=== PATIENT | female | born 1940 | race Caucasian/White ===

== ENCOUNTER 2019-03-22 15:41 | Inpatient (IN) | payer MEDICARE ==
[2019-03-22] MEDS ORDERED: diphenhydrAMINE 50 MG/ML 1 ML VIAL IVP STA (16:56)
[2019-03-22] MEDS ORDERED: METOCLOPRAMIDE 5 MG/ML 2 ML VIAL IVP STA (16:56)
[2019-03-22] MEDS ORDERED: MAGNESIUM SULFATE-D5W PMX 1 GM in DEXTROSE/WATER 1 100ML.BAG IVPB ONE (16:56)
[2019-03-22 17:14] LABS: ALT 23 U/L (9-52); AST 21 U/L (14-36); Albumin 4.2 g/dL (3.5-5.0); Alkaline Phosphatase 110 U/L (38-126); Ammonia <9 umol/L (<30); Anion Gap 10 mmol/L; Blood Urea Nitrogen 14 mg/dL (7-17); Calcium 9.4 mg/dL (8.4-10.2); Carbon Dioxide 25 mmol/L (22-30); Chloride 106 mmol/L (98-107); Glucose 105 mg/dL (74-99); Lactic Acid, Venous 1.4 mmol/L (0.7-2.0); Potassium 4.1 mmol/L (3.5-5.1); Sodium 141 mmol/L (137-145); Total Bilirubin 0.5 mg/dL (0.2-1.3); Total Protein 7.5 g/dL (6.3-8.2)
[2019-03-22 17:16] LABS: Appearance,Urine Clear (Clear); Bacteria,Urine Moderate /hpf; Bilirubin,Urine Negative (Negative); Blood,Urine Negative (Negative); Color,Urine Light Yellow; Glucose,Urine (UA) Negative (Negative); Hyaline Casts,Urine 1 /lpf (0-2); Ketones,Urine Negative (Negative); Leukocyte Esterase,Urine Negative (Negative); Mucus,Urine Rare /hpf; Nitrite,Urine Positive (Negative); PH, Urine 7.5 (5.0-8.0); Protein,Urine 1+ (Negative); RBC,Urine 9 /hpf (0-5); Specific Gravity,Urine 1.011 (1.001-1.035); Squamous Epithelial Cell,Urine <1 /hpf (0-4); Urobilinogen,Urine <2.0 mg/dL (<2.0); WBC,Urine 11 /hpf (0-5)
[2019-03-22 17:20] LABS: Anisocytosis Slight; Basophils # (A) 0.1 k/uL (0-0.2); Basophils % (A) 1 %; Eosinophils % (A) 0 %; HCT 37.2 % (34.0-46.0); Hypochromasia Marked; Lymphocytes # (A) 1.4 k/uL (1.0-4.8); Lymphocytes % (A) 14 %; MCH 19.6 pg (25.0-35.0); MCHC 29.4 g/dL (31.0-37.0); MCV 66.5 fL (80.0-100.0); Mean Platelet Volume 7.7; Microcytosis Marked; Monocytes # (A) 0.5 k/uL (0-1.0); Monocytes % (A) 5 %; Neutrophils # (A) 7.5 k/uL (1.3-7.7); Neutrophils % (A) 78 %; Platelet Count 402 k/uL (150-450); RDW 18.9 % (11.5-15.5); WBC 9.5 k/uL (3.8-10.6)
[2019-03-22 17:22] LABS: INR 0.9 (<1.2); Partial Thromboplastin Time 22.7 sec (22.0-30.0); Prothrombin Time 9.8 sec (9.0-12.0)
--- NOTE | 2019-03-22 17:31 | CT ---
EXAMINATION TYPE: CT brain wo con DATE OF EXAM: 03/22/2019 COMPARISON: None HISTORY: 79-year-old female with confusion, altered mental status. TECHNIQUE: Examination was done in axial plane without intravenous contrast. Coronal and sagittal r econstructions performed. CT DLP: 1099.4 mGycm Automated exposure control for dose reduction was used. FINDINGS: There is no evidence of acute intracranial hemorrhage, acute ischemic changes, mass, mass-effect, or extra-axial fluid collection. There is no effacement of cerebral sulci or basal subarachnoid cister ns. There is no hydrocephalus. There is no midline shift. Mcdonald-white matter distinction is preserv ed. There is mild generalized atrophy. There is moderate burden of periventricular and deep white matter hypodensities. Metastatic calcifications in the carotid siphons. Paranasal sinuses and mastoid air cells well pneumatized. Orbits and globes are intact. IMPRESSION: Mild generalized atrophy and moderate burden of chronic small vessel ischemic disease. No acute intra cranial abnormality seen.
--- NOTE | 2019-03-22 17:33 | XR ---
EXAMINATION TYPE: XR chest 2V DATE OF EXAM: 03/22/2019 COMPARISON: None HISTORY: 79-year-old female confusion, altered mental status TECHNIQUE: AP and lateral views FINDINGS: Heart upper limits of normal in size. Mild diffuse interstitial prominence. Mild hyperinflation. Zoe ent's left arm projects in front of the lateral left costophrenic angle. No consolidation or pleural effusion seen. IMPRESSION: 1. Borderline heart size. 2. Chronic-appearing changes, possible underlying COPD. 3. No acute process seen.
[2019-03-22] MEDS ORDERED: LABETALOL SYRINGE 5 MG/ML IVP STA (18:52)
[2019-03-22] MEDS ORDERED: NALOXONE 0.4 MG/ML 1 ML VIAL IV PRN (20:42)
--- NOTE | 2019-03-22 20:42 | ED ---
Altered Mental Status HPI - General Chief Complaint: Altered Mental Status Stated Complaint: Weakness Time Seen by Provider: 03/22/19 16:08 Source: patient, family, EMS Mode of arrival: EMS Limitations: altered mental status, physical limitation - History of Present Illness Initial Comments: The patient is an 79-year-old female who is brought to the emergency department by her son with reported confusion and weakness. The son reports that the patient went to bed yesterday symptom-free. She then awoke this morning and had generalized weakness. He also admit that she was slightly confused. The patient is reporting a generalized headache, graded as 7 out of 10. The patient does not normally get headaches. There is no associated fevers or chills. No neck pain or stiffness. The patient does admit to photophobia. no recent head trauma. Denies any unilateral numbness or weakness. No vision changes. She did not take anything for her headache. She has had a good appetite. No nausea or vomiting. Denies any chest pain or shortness of breath. Denies abdominal pain. No changes in her urination to include dysuria, hematuria or difficult voiding. Denies any changes in her bowel movements to include diarrhea, constipation, melanotic stools or hematochezia. The patient's continues to be a and O 3. She ambulates with a walker and her son's assistance. She does not have a primary care physician and has not seen a doctor in 3 years. There are no other alleviating, precipitating or modifying factors - Related Data Home Medications Medication Instructions Recorded Confirmed Ibuprofen [Advil] 200 mg PO Q8HR PRN 03/22/19 03/22/19 Ranitidine HCl [Zantac] 75 mg PO DAILY 03/22/19 03/22/19 Allergies Allergy/AdvReac Type Severity Reaction Status Date / Time No Known Allergies Allergy Verified 03/22/19 16:30 Review of Systems ROS Statement: Those systems with pertinent positive or pertinent negative responses have been documented in the HPI. ROS Other: All systems not noted in ROS Statement are negative. Past Medical History Additional Past Medical History / Comment(s): polio as child History of Any Multi-Drug Resistant Organisms: None Reported Past Surgical History: Hysterectomy, Joint Replacement Past Psychological History: No Psychological Hx Reported Smoking Status: Former smoker Past Alcohol Use History: None Reported Past Drug Use History: None Reported General Exam Limitations: no limitations General appearance: alert, in no apparent distress, other (Appears weak) Head exam: Present: atraumatic, normocephalic, normal inspection Eye exam: Present: EOMI, scleral icterus, other (The patient does have white discoloration to her left globe consistent with her chronic left eye blindness. The right pupil is equally round and reactive to light. 4 mm to 2 mm. Fun duscopic exam demonstrates no papilledema). Absent: conjunctival injection, periorbital swelling ENT exam: Present: normal exam, mucous membranes dry Neck exam: Present: normal inspection. Absent: tenderness, meningismus, lymphadenopathy Respiratory exam: Present: normal lung sounds bilaterally. Absent: respiratory distress, wheezes, rales, rhonchi, stridor Cardiovascular Exam: Present: regular rate, normal rhythm, normal heart sounds. Absent: systolic murmur, diastolic murmur, rubs, gallop, clicks GI/Abdominal exam: Present: soft, normal bowel sounds. Absent: distended, tenderness, guarding, rebound, rigid Extremities exam: Present: normal inspection, full ROM, normal capillary refill. Absent: tenderness, pedal edema, joint swelling, calf tenderness Back exam: Present: normal inspection Neurological exam: Present: alert, oriented X3, CN II-XII intact, reflexes normal, other (The patient appears weak. Finger to nose is symmetric bilaterally. No pronator drift. Negative Kernig's, negative Brudzinski's. No nuchal rigidity). Absent: motor sensory deficit Psychiatric exam: Present: normal affect, normal mood Skin exam: Present: warm, dry, intact, normal color. Absent: rash Course Vital Signs 03/22/19 03/22/19 03/22/19 15:43 15:45 16:00 Temperature 98.3 F Pulse Rate 87 84 85 Respiratory 16 Rate Blood Pressure 192/96 192/96 O2 Sat by Pulse 95 98 96 Oximetry 03/22/19 03/22/19 03/22/19 16:30 17:00 17:30 Temperature Pulse Rate 86 83 82 Respiratory Rate Blood Pressure 192/96 189/71 181/103 O2 Sat by Pulse 94 L 95 97 Oximetry 03/22/19 03/22/19 03/22/19 18:00 18:30 19:00 Temperature Pulse Rate 92 92 93 Respiratory Rate Blood Pressure 232/107 244/109 195/138 O2 Sat by Pulse 97 94 L 94 L Oximetry 03/22/19 03/22/19 03/22/19 19:30 20:00 20:30 Temperature Pulse Rate 73 70 75 Respiratory Rate Blood Pressure 191/96 212/72 180/70 O2 Sat by Pulse 92 L 94 L 96 Oximetry 03/22/19 21:00 Temperature Pulse Rate 75 Respiratory Rate Blood Pressure 185/85 O2 Sat by Pulse 92 L Oximetry Medical Decision Making - Medical Decision Making The patient was seen by myself. She was placed into room 7. She was hooked up to continuous pulse ox and cardiac monitoring. A 12-lead EKG was performed which demonstrated a normal sinus rhythm with a ventricular rate of 83. [place] 134. QRS 84. QTC of 474. There was some ST depression noted in leads 2-3. There is a biphasic T-wave in V3. No acute ST segment elevations. We did obtain IV access. The patient was given Reglan 10 mg, Benadryl 25 mg, and magnesium 1 g. She was sent for CT of her brain and a chest x-ray. Laboratory studies were conducted and the patient provided a urine sample. Upon reevaluation the patient admits improvement in her headache. She states it is a 4 out of 10. The patient does present with acute cephalgia. Her blood pressure is markedly elevated with a systolic of 240. She does have some improvement in her blood pressure after the migraine cocktail however I did provide her with labetalol 10 mg. Blood cultures were obtained and the patient was started on Rocephin. I did recommend admission to the hospital due to her hypertensive urgency, and acute encephalopathy likely secondary to UTI. The patient did agree to this. Patient will be admitted to Dr. Joe. I called and discussed the case with him and he did accept the admission. The patient remained in stable condition was transported to floor. - Differential Diagnosis acute encephalopathy, acute cephalgia, acute UTI, htn urgency - Lab Data Result diagrams: 03/22/19 16:45 03/22/19 16:45 Lab Results 03/22/19 03/22/19 03/22/19 Range/Units 16:45 16:45 16:45 WBC 9.5 (3.8-10.6) k/uL RBC 5.60 H (3.80-5.40) m/uL Hgb 11.0 L (11.4-16.0) gm/dL Hct 37.2 (34.0-46.0) % MCV 66.5 L (80.0-100.0) fL MCH 19.6 L (25.0-35.0) pg MCHC 29.4 L (31.0-37.0) g/dL RDW 18.9 H (11.5-15.5) % Plt Count 402 (150-450) k/uL Neutrophils % 78 % Lymphocytes % 14 % Monocytes % 5 % Eosinophils % 0 % Basophils % 1 % Neutrophils # 7.5 (1.3-7.7) k/uL Lymphocytes # 1.4 (1.0-4.8) k/uL Monocytes # 0.5 (0-1.0) k/uL Eosinophils # 0.0 (0-0.7) k/uL Basophils # 0.1 (0-0.2) k/uL Hypochromasia Marked Anisocytosis Slight Microcytosis Marked PT 9.8 (9.0-12.0) sec INR 0.9 (<1.2) APTT 22.7 (22.0-30.0) sec Sodium 141 (137-145) mmol/L Potassium 4.1 (3.5-5.1) mmol/L Chloride 106 (98-107) mmol/L Carbon Dioxide 25 (22-30) mmol/L Anion Gap 10 mmol/L BUN 14 (7-17) mg/dL Creatinine 0.63 (0.52-1.04) mg/dL Est GFR (CKD-EPI)AfAm >90 (>60 ml/min/1.73 sqM) Est GFR (CKD-EPI)NonAf 84 (>60 ml/min/1.73 sqM) Glucose 105 H (74-99) mg/dL Plasma Lactic Acid Doug (0.7-2.0) mmol/L Calcium 9.4 (8.4-10.2) mg/dL Total Bilirubin 0.5 (0.2-1.3) mg/dL AST 21 (14-36) U/L ALT 23 (9-52) U/L Alkaline Phosphatase 110 (38-126) U/L Ammonia (<30) umol/L Troponin I (0.000-0.034) ng/mL Total Protein 7.5 (6.3-8.2) g/dL Albumin 4.2 (3.5-5.0) g/dL Urine Color Urine Appearance (Clear) Urine pH (5.0-8.0) Ur Specific [place] (1.001-1.035) Urine Protein (Negative) Urine Glucose (UA) (Negative) Urine Ketones (Negative) Urine Blood (Negative) Urine Nitrite (Negative) Urine Bilirubin (Negative) Urine Urobilinogen (<2.0) mg/dL Ur Leukocyte Esterase (Negative) Urine RBC (0-5) /hpf Urine WBC (0-5) /hpf Ur Squamous Epith Cells (0-4) /hpf Urine Bacteria (None) /hpf Hyaline Casts (0-2) /lpf Urine Mucus (None) /hpf 03/22/19 03/22/19 03/22/19 Range/Units 16:45 16:45 16:45 WBC (3.8-10.6) k/uL RBC (3.80-5.40) m/uL Hgb (11.4-16.0) gm/dL Hct (34.0-46.0) % MCV (80.0-100.0) fL MCH (25.0-35.0) pg MCHC (31.0-37.0) g/dL RDW (11.5-15.5) % Plt Count (150-450) k/uL Neutrophils % % Lymphocytes % % Monocytes % % Eosinophils % % Basophils % % Neutrophils # (1.3-7.7) k/uL Lymphocytes # (1.0-4.8) k/uL Monocytes # (0-1.0) k/uL Eosinophils # (0-0.7) k/uL Basophils # (0-0.2) k/uL Hypochromasia Anisocytosis Microcytosis PT (9.0-12.0) sec INR (<1.2) APTT (22.0-30.0) sec Sodium (137-145) mmol/L Potassium (3.5-5.1) mmol/L Chloride (98-107) mmol/L Carbon Dioxide (22-30) mmol/L Anion Gap mmol/L BUN (7-17) mg/dL Creatinine (0.52-1.04) mg/dL Est GFR (CKD-EPI)AfAm (>60 ml/min/1.73 sqM) Est GFR (CKD-EPI)NonAf (>60 ml/min/1.73 sqM) Glucose (74-99) mg/dL Plasma Lactic Acid Doug 1.4 (0.7-2.0) mmol/L Calcium (8.4-10.2) mg/dL Total Bilirubin (0.2-1.3) mg/dL AST (14-36) U/L ALT (9-52) U/L Alkaline Phosphatase (38-126) U/L Ammonia <9 (<30) umol/L Troponin I <0.012 (0.000-0.034) ng/mL Total Protein (6.3-8.2) g/dL Albumin (3.5-5.0) g/dL Urine Color Light Yellow Urine Appearance Clear (Clear) Urine pH 7.5 (5.0-8.0) Ur Specific [place] 1.011 (1.001-1.035) Urine Protein 1+ H (Negative) Urine Glucose (UA) Negative (Negative) Urine Ketones Negative (Negative) Urine Blood Negative (Negative) Urine Nitrite Positive H (Negative) Urine Bilirubin Negative (Negative) Urine Urobilinogen <2.0 (<2.0) mg/dL Ur Leukocyte Esterase Negative (Negative) Urine RBC 9 H (0-5) /hpf Urine WBC 11 H (0-5) /hpf Ur Squamous Epith Cells <1 (0-4) /hpf Urine Bacteria Moderate H (None) /hpf Hyaline Casts 1 (0-2) /lpf Urine Mucus Rare H (None) /hpf - EKG Data -: EKG Interpreted by Ma EKG shows normal: sinus rhythm - Radiology Data Radiology results: report reviewed Disposition Clinical Impression: Encephalopathy acute, Urinary tract infection, Cephalgia, Hypertension Disposition: ADMITTED IP TO THIS [facility] Condition: Stable Is patient prescribed a controlled substance at d/c from ED?: No Time of Disposition: 20:41 Decision to Admit Reason: Admit from EC Decision Date: 03/22/19 Decision Time: 20:42
[2019-03-22] MEDS ORDERED: LABETALOL SYRINGE 5 MG/ML IVP PRN (21:21)
[2019-03-22] MEDS ORDERED: ALPRAZolam 0.25 MG TAB PO PRN (23:21)
[2019-03-22] MEDS ORDERED: LORazepam 1 MG TAB PO PRN (23:21)
[2019-03-23] MEDS ORDERED: hydrALAZINE HCL 20 MG/ML 1 ML VIAL IVP PRN (00:32)
[2019-03-23] MEDS: amLODIPine 10 MG TAB PO SCH ×2 (01:04→09:06)
[2019-03-23 06:19] LABS: Anisocytosis Slight; Basophils # (A) 0.1 k/uL (0-0.2); Basophils % (A) 1 %; Eosinophils # (A) 0.1 k/uL (0-0.7); Eosinophils % (A) 2 %; HCT 33.3 % (34.0-46.0); HGB 9.6 gm/dL (11.4-16.0); Hypochromasia Marked; Lymphocytes # (A) 2.7 k/uL (1.0-4.8); Lymphocytes % (A) 31 %; MCHC 28.9 g/dL (31.0-37.0); MCV 69.4 fL (80.0-100.0); Mean Platelet Volume 7.1; Microcytosis Marked; Monocytes # (A) 0.6 k/uL (0-1.0); Monocytes % (A) 7 %; Neutrophils # (A) 4.9 k/uL (1.3-7.7); Neutrophils % (A) 57 %; Platelet Count 319 k/uL (150-450); RDW 18.7 % (11.5-15.5); WBC 8.5 k/uL (3.8-10.6)
[2019-03-23] MEDS: PANTOPRAZOLE 40 MG TABLET PO SCH (06:22)
[2019-03-23 06:35] LABS: Magnesium 2.1 mg/dL (1.6-2.3); Potassium 3.9 mmol/L (3.5-5.1)
--- NOTE | 2019-03-23 06:45 | HP ---
HISTORY AND PHYSICAL DATE OF SERVICE: 03/22/2019. CHIEF COMPLAINTS: Change in mental status. HISTORY OF PRESENT ILLNESS: This 79-year-old woman with a past medical history of polio as a child, DJD, being followed by no primary physician in the outpatient setting was noted to have change in mental status by the family. The patient was confused. The patient taken to [facility]. UTI with sepsis suspected. Patient admitted for further evaluation and treatment. There is no history of fever, rigors. No history of headache, loss of consciousness, seizures. CT scan showed small vessel ischemia and as well as minimal generalized atrophy. Blood pressure is significantly elevated up to 244/109. PAST MEDICAL HISTORY: History of polio as a child, hysterectomy, history of nicotine dependence, DJD. MEDICATIONS: Home medications are Ranitidine 75 mg p.o. daily. Advil 200 mg p.o. q8. ALLERGIES: Are none. FAMILY HISTORY: No history of heart disease or strokes in the family. SOCIAL HISTORY: Previous history of smoking. No history of current smoking. No alcohol intake. REVIEW OF SYSTEMS: ENT: Diminished vision. Diminished hearing. CARDIOVASCULAR: No angina or palpitations. RESPIRATORY: No cough or hemoptysis. GI no nausea or vomiting. no nausea or vomiting. CENTRAL NERVOUS SYSTEM: As mentioned earlier. ALLERGY/IMMUNOLOGY: No asthma or hayfever. MUSCULOSKELETAL as mentioned earlier. HEMATOLOGY/ONCOLOGY: No history of anemia. ENDOCRINE: No history of diabetes or hypothyroidism. CONSTITUTIONAL: As mentioned earlier. DERMATOLOGY: Negative. RHEUMATOLOGY: Negative. PSYCHIATRY: As mentioned earlier. PHYSICAL EXAMINATION: Alert oriented x3. Pulse 73, blood pressure 160/69, respirations 20, temperature 99.1, pulse ox 94% on room air. Temperature 99.1. HEENT: Conjunctivae normal. Oral mucosa moist. NECK is no jugular venous distention. No carotid bruit. No lymph node enlargement. CARDIOVASCULAR: S1, S2 muffled. RESPIRATION: Breath sounds diminished in the bases. A few scattered rhonchi. No crackles. ABDOMEN: Soft, nontender. No mass palpable. LEGS no edema. No swelling. NERVOUS SYSTEM: Higher functions as mentioned earlier. Moves all four extremities. No focal motor or sensory deficit. LYMPHATICS: No lymph nodes palpable in the neck, axillae or groin. SKIN: No ulcer, rash or bleeding. JOINTS: No deforming arthropathy. LABORATORY DATA: Chest x-ray, possible chronic obstructive pulmonary disease. Other labs are WBC 9.5, hemoglobin is 11. ASSESSMENT: 1. Change in mental status possibly urinary tract infection with sepsis. 2. Hypertensive urgency with accelerated hypertension. 3. Anemia microcytic undetermined etiology. 4. Polio as a child. 5. Hysterectomy. 6. Degenerative joint disease. 7. Remote history of nicotine dependence. 8. FULL CODE. RECOMMENDATIONS AND DISCUSSION: This 79-year-old woman who presented with multiple complex medical issues. We will monitor the patient closely. Continue the current medications, continue symptomatic treatment. We will initiate broad-spectrum IV antibiotics. Cultures. Repeat labs. Otherwise prognosis guarded because of multiple complex medical issues. PT/OT will be consulted. Further recommendations to follow. DVT prophylaxis. See orders for details. Discussed with the family at length who understand and agrees. Patient apparently lives with one of her sons. I would also recommend initiate Norvasc also started. MMODL / IJN: [id number] / YAZAN
[2019-03-23] MEDS: FAMOTIDINE 20 MG TAB PO SCH (09:06)
[2019-03-23] MEDS: FOLIC ACID 1 MG TAB PO SCH (09:06)
[2019-03-23] MEDS: HEPARIN SODIUM,PORCINE 5,000 UNIT/ML 1 ML VIAL SQ SCH ×2 (09:06→20:47)
[2019-03-23] MEDS: MULTIVITAMINS, THERA 1 EACH TAB PO SCH (09:06)
[2019-03-23] MEDS: THIAMINE 100 MG TAB PO SCH (09:06)
[2019-03-23 12:13] LABS: Glucose,Whole Blood 97 mg/dL (75-99)
--- NOTE | 2019-03-23 21:09 | PN ---
PROGRESS NOTE DATE OF SERVICE: 03/23/2019 This 79-year-old woman comes in status post UTI with sepsis. The patient is on empiric antibiotics. Cultures are negative so far. No chest pain. No palpitations. No fever. EXAM: Alert and oriented x2. Pulse is 77, blood pressure 130/60, respiration 20, temp 97.8, pulse ox 93% on room air. HEENT: Conjunctivae normal. Oral mucosa moist. NECK: No jugular venous distention. No lymph node enlargement. CARDIOVASCULAR: S1, S2. RESPIRATORY: Diminished breath sounds at the bases. A few scattered rhonchi. ABDOMEN: Soft, nontender. LEGS: No swelling. NERVOUS SYSTEM: No focal deficits. LABS: WBC 8.2, hemoglobin 9.6. ASSESSMENT: 1. Acute urinary tract infection with possible sepsis present on admission. 2. Change in mental status, acute metabolic encephalopathy secondary to sepsis. 3. Hypertensive urgency and accelerated hypertension, present on admission, improved. 4. Anemia, microcytic, undetermined etiology. 5. Polio as a child. 6. Hysterectomy. 7. Degenerative joint disease. 8. Remote history of nicotine dependence. 9. FULL CODE. RECOMMENDATIONS AND DISCUSSION: I recommend to continue current management, continue to monitor, continue symptomatic treatment, continue the broad-spectrum IV antibiotics. Repeat labs. Continue with PT OT evaluation. Patient apparently lives with the family and the patient should be able to return home once the patient is stabilized in the next 24-48 hours. Further recommendations to follow. MMODL / RICARDON: [id number] /
[2019-03-24] MEDS: HEPARIN SODIUM,PORCINE 5,000 UNIT/ML 1 ML VIAL SQ SCH ×2 (07:55→19:52)
[2019-03-24] MEDS: amLODIPine 10 MG TAB PO SCH (07:55)
[2019-03-24] MEDS: FAMOTIDINE 20 MG TAB PO SCH (07:55)
[2019-03-24] MEDS: PANTOPRAZOLE 40 MG TABLET PO SCH (07:55)
[2019-03-24 08:31] LABS: Anisocytosis Slight; Basophils # (A) 0.1 k/uL (0-0.2); Basophils % (A) 1 %; Eosinophils # (A) 0.2 k/uL (0-0.7); Eosinophils % (A) 2 %; HCT 36.1 % (34.0-46.0); HGB 10.2 gm/dL (11.4-16.0); Hypochromasia Marked; Lymphocytes % (A) 39 %; MCH 19.4 pg (25.0-35.0); MCHC 28.4 g/dL (31.0-37.0); MCV 68.4 fL (80.0-100.0); Mean Platelet Volume 7.2; Microcytosis Marked; Monocytes # (A) 0.3 k/uL (0-1.0); Monocytes % (A) 4 %; Neutrophils % (A) 53 %; Platelet Count 371 k/uL (150-450); RBC 5.28 m/uL (3.80-5.40); RDW 19.2 % (11.5-15.5); WBC 7.6 k/uL (3.8-10.6)
[2019-03-24 08:45] LABS: Anion Gap 9 mmol/L; Blood Urea Nitrogen 18 mg/dL (7-17); Calcium 8.8 mg/dL (8.4-10.2); Carbon Dioxide 25 mmol/L (22-30); Chloride 108 mmol/L (98-107); Glucose 147 mg/dL (74-99); Potassium 3.6 mmol/L (3.5-5.1); Sodium 142 mmol/L (137-145)
[2019-03-24] MEDS: MULTIVITAMINS, THERA 1 EACH TAB PO SCH (13:14)
[2019-03-24] MEDS: THIAMINE 100 MG TAB PO SCH (13:14)
[2019-03-24] MEDS: FOLIC ACID 1 MG TAB PO SCH (13:14)
[2019-03-24] MEDS ORDERED: diphenhydrAMINE 50 MG CAP PO PRN (15:38)
[2019-03-24] MEDS ORDERED: diphenhydrAMINE ELIXIR 25 MG/10 ML CUP PO PRN (15:40)
[2019-03-24] MEDS: CEFDINIR 300 MG CAP PO SCH (18:39)
[2019-03-24] MEDS: ALPRAZolam 0.25 MG TAB PO PRN (19:52)
--- NOTE | 2019-03-24 21:37 | PN ---
PROGRESS NOTE DATE OF SERVICE: 03/24/2019. This 79-year-old woman was admitted with acute UTI, sepsis, change in mental status, improving significantly. Patient complains of weakness. No fever. No cough. EXAM: Alert and oriented times three. Pulse 70. Blood pressure 141/72, respiration 18, temperature 98.7. Pulse ox 97% on room air. HEENT: Conjunctivae normal. NECK: No jugular venous distention. No carotid bruit. CARDIOVASCULAR: S1, S2 muffled. RESPIRATORY: Breath sounds diminished in the bases. Bilateral scattered rhonchi and crackles. ABDOMEN is soft, nontender. LEGS are no edema. No swelling. CENTRAL NERVOUS SYSTEM: No focal deficits. LABS: WBC 7.2, hemoglobin is 10.2. ASSESSMENT: 1. Acute urinary tract infection with possible sepsis present on admission, improving. 2. Change in mental status, metabolic acidosis with acute on chronic with possibly secondary sepsis. 3. Hypertensive urgency with accelerated hypertension, present on admission, improved. 4. Anemia microcytic anemia undetermined etiology. 5. Polio as a child. 6. Hysterectomy history. 7. History of degenerative joint disease. 8. Remote history of nicotine dependence. 9. FULL CODE. RECOMMENDATIONS AND DISCUSSION: I recommend to continue current medications, management. Symptomatic treatment. Otherwise, continue the antibiotics. Otherwise PT/OT evaluation. Consider possible ECF rehab versus home. Further recommendations to follow. MMODL / IJN: [id number] /
[2019-03-25] MEDS: HEPARIN SODIUM,PORCINE 5,000 UNIT/ML 1 ML VIAL SQ SCH (06:50)
[2019-03-25] MEDS: FAMOTIDINE 20 MG TAB PO SCH (06:57)
[2019-03-25] MEDS: PANTOPRAZOLE 40 MG TABLET PO SCH (06:57)
[2019-03-25] MEDS: amLODIPine 10 MG TAB PO SCH ×3 (06:57→08:58)
[2019-03-25 07:49] VITALS: RESP 16
[2019-03-25] MEDS: ALPRAZolam 0.25 MG TAB PO PRN (08:58)
[2019-03-25 09:01] VITALS: BP 144/69; PULSE 70; TEMP 98.4
[2019-03-25 09:38] LABS: Anisocytosis Slight; Basophils # (A) 0.1 k/uL (0-0.2); Basophils % (A) 1 %; Eosinophils # (A) 0.2 k/uL (0-0.7); Eosinophils % (A) 2 %; HCT 33.7 % (34.0-46.0); HGB 9.7 gm/dL (11.4-16.0); Hypochromasia Marked; Lymphocytes # (A) 2.3 k/uL (1.0-4.8); Lymphocytes % (A) 33 %; MCH 19.6 pg (25.0-35.0); MCHC 28.7 g/dL (31.0-37.0); MCV 68.1 fL (80.0-100.0); Mean Platelet Volume 7.1; Microcytosis Marked; Monocytes # (A) 0.4 k/uL (0-1.0); Monocytes % (A) 5 %; Neutrophils % (A) 57 %; Platelet Count 302 k/uL (150-450); RBC 4.94 m/uL (3.80-5.40); RDW 19.1 % (11.5-15.5)
[2019-03-25 09:56] LABS: Anion Gap 5 mmol/L; Blood Urea Nitrogen 21 mg/dL (7-17); Calcium 8.8 mg/dL (8.4-10.2); Carbon Dioxide 25 mmol/L (22-30); Chloride 110 mmol/L (98-107); Glucose 87 mg/dL (74-99); Potassium 3.9 mmol/L (3.5-5.1); Sodium 140 mmol/L (137-145)
[2019-03-25] MEDS: THIAMINE 100 MG TAB PO SCH (13:10)
[2019-03-25] MEDS: MULTIVITAMINS, THERA 1 EACH TAB PO SCH (13:10)
[2019-03-25] MEDS: FOLIC ACID 1 MG TAB PO SCH (13:11)
[2019-03-25] MEDS: CEFDINIR 300 MG CAP PO SCH (17:56)
--- NOTE | 2019-03-27 09:01 | DS ---
DISCHARGE SUMMARY FINAL DIAGNOSES: 1. Acute urinary tract infection with possible sepsis present on admission, improved due to Escherichia coli. 2. Change in mental status, metabolic encephalopathy with acute on chronic possibly secondary to sepsis. 3. Hypertensive urgency with accelerated hypertension, present on admission, improved. 4. Anemia microcytic undetermined etiology. 5. Polio as a child. 6. Hysterectomy. 7. History of degenerative joint disease. 8. Remote history of nicotine dependence. 9. FULL CODE. DISCHARGE DISPOSITION: The patient will be discharged in stable condition with guarded prognosis. HISTORY OF PRESENT ILLNESS: This 79-year-old with a past medical history of multiple medical problems was admitted with UTI with possible. sepsis. Treated with antibiotics. She improved significantly. The culture showed E coli which is poly sensitive. Patient improved significantly. The patient was discharged home in stable condition with guarded prognosis. On exam, vitals are stable. CARDIOVASCULAR: S1 and S2 muffled. ABDOMEN: Soft. NERVOUS SYSTEM: No focal deficits. DISCHARGE ADVICE: 1. Diet is cardiac. 2. Activity limited until followup. 3. Follow up with Dr. Deleon in 2 to 3 days. Otherwise medications are: 1. Ibuprofen p.r.n. 2. Ativan 0.5 mg t.i.d. p.r.n. 3. Ceftin 500 mg p.o. b.i.d. for 3 days. 4. Folic acid 1 mg daily. 5. Multivitamins one p.o. daily. 6. Norvasc 10 mg p.o. daily. 7. Protonix 40 mg with breakfast. 8. Vitamin B1, 100 mg p.o. daily. Once again, the patient will be discharged in stable condition with guarded prognosis. MMODL / IJN: [id number] /
== END 2019-03-25 18:15 | disposition home or self-care (01) | DRG 871 ==
LOC: EC 15:41 → 3SCARD 20:42 → 4MS4W 03-23 13:24
PROVIDERS: ADMIT Hospitalist; ATTEND Hospitalist
DX: A41.51 Sepsis due to Escherichia coli [E. coli] (principal); G93.41 Metabolic encephalopathy; N39.0 Urinary tract infection, site not specified; E87.2 Acidosis; R65.20 Severe sepsis without septic shock; I16.0 Hypertensive urgency; I10 Essential (primary) hypertension; M19.90 Unspecified osteoarthritis, unspecified site; D50.9 Iron deficiency anemia, unspecified; Z90.710 Acquired absence of both cervix and uterus; Z87.891 Personal history of nicotine dependence; Z86.12 Personal history of poliomyelitis; Z79.899 Other long term (current) drug therapy
CPT/HCPCS: 36415; 70450; 71046; 80048; 80053; 81001; 82140; 83605; 83735; 84484; 85025; 85610; 85730; 87040; 87077; 87086; 87186; 93005; 96365; 96367; 96375; 99285

== ENCOUNTER 2019-03-28 16:28 | Inpatient (IN) | payer MEDICARE ==
[2019-03-28] MEDS ORDERED: cefTRIAXone IN SWFI 1,000 MG/10 ML SYRINGE IVP STA (16:55)
[2019-03-28] MEDS ORDERED: ASPIRIN 81 MG PO STA (16:55)
[2019-03-28] MEDS ORDERED: SODIUM CHLORIDE 0.9% 1,000 ML IV ONE (16:56)
--- NOTE | 2019-03-28 16:59 | ED ---
General Adult HPI - General Chief complaint: Chest Pain Stated complaint: Chest Pain Time Seen by Provider: 03/28/19 16:51 Source: EMS Mode of arrival: EMS Limitations: no limitations - History of Present Illness Initial comments: Patient is an 79-year-old female who presents with a chief complaint of chest pain and altered mental status. Patient is alert but not oriented. She appears confused. Her son who is with her at bedside states she is currently being treated with urinary tract infection. She isn't being treated with Bactrim since Sunday without improvement. Patient states that she is having chest pain that she characterizes as a pounding sensation. There are no aggravating or alleviating factors. Timing is constant. The son states that he thinks is likely secondary to anxiety because she has been complaining of this pain since initiation of the antibiotics. - Related Data Previous Rx's Medication Instructions Recorded Cefuroxime Axetil [Ceftin] 500 mg PO BID 3 Days #6 tab 03/24/19 Folic Acid 1 mg PO DAILY@1200 #30 tab 03/24/19 Multivitamins, Thera [Multivitamin 1 each PO DAILY@1200 #30 tab 03/24/19 (formulary)] Pantoprazole [Protonix] 40 mg PO AC-BRKFST #30 tablet. 03/24/19 amLODIPine [Norvasc] 10 mg PO DAILY #30 tab 03/24/19 LORazepam [Ativan] 0.5 mg PO TID PRN 3 Days #9 tab 03/25/19 Allergies Allergy/AdvReac Type Severity Reaction Status Date / Time No Known Allergies Allergy Verified 03/28/19 17:30 Review of Systems ROS Statement: Those systems with pertinent positive or pertinent negative responses have been documented in the HPI. ROS Other: All systems not noted in ROS Statement are negative. Constitutional: Reports: fever, chills Cardiovascular: Reports: chest pain Genitourinary: Reports: dysuria Past Medical History Additional Past Medical History / Comment(s): polio as child History of Any Multi-Drug Resistant Organisms: None Reported Past Surgical History: Hysterectomy, Joint Replacement Past Anesthesia/Blood Transfusion Reactions: No Reported Reaction Past Psychological History: No Psychological Hx Reported Smoking Status: Former smoker Past Alcohol Use History: None Reported Past Drug Use History: None Reported General Exam Limitations: no limitations General appearance: alert, in no apparent distress Head exam: Present: atraumatic, normocephalic Eye exam: Present: normal appearance ENT exam: Present: normal exam Neck exam: Present: normal inspection Respiratory exam: Present: normal lung sounds bilaterally. Absent: respiratory distress, wheezes Cardiovascular Exam: Present: regular rate, normal rhythm GI/Abdominal exam: Present: soft. Absent: distended, tenderness Rectal exam: Present: deferred Extremities exam: Present: normal inspection Back exam: Present: normal inspection Neurological exam: Present: alert, altered. Absent: oriented X3 Psychiatric exam: Present: normal affect, normal mood Skin exam: Present: warm, dry, intact Course Vital Signs 03/28/19 03/28/19 03/28/19 16:35 18:00 19:26 Temperature 98.8 F 98.2 F Pulse Rate 79 78 77 Respiratory 18 18 17 Rate Blood Pressure 150/65 164/70 144/70 O2 Sat by Pulse 98 100 97 Oximetry 03/28/19 21:23 Temperature Pulse Rate 67 Respiratory 16 Rate Blood Pressure 153/54 O2 Sat by Pulse 98 Oximetry Medical Decision Making - Medical Decision Making Patient presents with a chief complaint of chest pain and altered mental status. On initial evaluation, vital signs are stable the patient is tactilely warm. She is in no acute distress. EKG performed at 1638 shows normal sinus rhythm with a rate of 79 bpm, seconds are within normal limits, no acute ischemic findings. Patient to be evaluated with basic labs including cardiac enzymes, urinalysis and urine culture. Given that she is currently being treated for UTI and is still altered, she was given a dose of Rocephin after urine cultures were obtained. Patient not meeting SIRS criteria at this time. She'll be given 1 L of IV fluid. 8:46 PM lab evaluation of this patient shows a mild leukocytosis, UA not showing strong evidence of UTI, patient possibly partially treated, and started on rocephin. Labs are otherwise unremarkable. given patients tenderness on abdominal exam, she will be sent for CT of the abdomen and pelvis to rule out other causes. CT of the head is stable when compared to previous study. case discussed with Dr. Martinez who accepts admission. 9:[address] abdomen and pelvis shows fibrotic changes in the lung bases without evidence of acute intraabdominal process. patient stable for transfer to the floor. - Lab Data Result diagrams: 03/28/19 16:43 03/28/19 16:43 Lab Results 03/28/19 03/28/19 03/28/19 Range/Units 16:43 16:43 16:43 WBC 12.8 H (3.8-10.6) k/uL RBC 5.74 H (3.80-5.40) m/uL Hgb 11.3 L (11.4-16.0) gm/dL Hct 38.3 (34.0-46.0) % MCV 66.8 L (80.0-100.0) fL MCH 19.6 L (25.0-35.0) pg MCHC 29.3 L (31.0-37.0) g/dL RDW 18.9 H (11.5-15.5) % Plt Count 378 (150-450) k/uL Neutrophils % 80 % Lymphocytes % 10 % Monocytes % 7 % Eosinophils % 0 % Basophils % 0 % Neutrophils # 10.3 H (1.3-7.7) k/uL Lymphocytes # 1.3 (1.0-4.8) k/uL Monocytes # 0.9 (0-1.0) k/uL Eosinophils # 0.1 (0-0.7) k/uL Basophils # 0.0 (0-0.2) k/uL Hypochromasia Marked Anisocytosis Slight Microcytosis Marked VBG pH (7.31-7.41) VBG pCO2 (37-51) mmHg VBG HCO3 (24-28) mmol/L Sodium 138 (137-145) mmol/L Potassium 4.2 (3.5-5.1) mmol/L Chloride 107 (98-107) mmol/L Carbon Dioxide 22 (22-30) mmol/L Anion Gap 9 mmol/L BUN 19 H (7-17) mg/dL Creatinine 0.69 (0.52-1.04) mg/dL Est GFR (CKD-EPI)AfAm >90 (>60 ml/min/1.73 sqM) Est GFR (CKD-EPI)NonAf 82 (>60 ml/min/1.73 sqM) Glucose 99 (74-99) mg/dL Calcium 9.8 (8.4-10.2) mg/dL Troponin I (0.000-0.034) ng/mL NT-Pro-B Natriuret Pep 1030 pg/mL Urine Color Urine Appearance (Clear) Urine pH (5.0-8.0) Ur Specific [place] (1.001-1.035) Urine Protein (Negative) Urine Glucose (UA) (Negative) Urine Ketones (Negative) Urine Blood (Negative) Urine Nitrite (Negative) Urine Bilirubin (Negative) Urine Urobilinogen (<2.0) mg/dL Ur Leukocyte Esterase (Negative) 03/28/19 03/28/19 03/28/19 Range/Units 16:43 17:55 18:10 WBC (3.8-10.6) k/uL RBC (3.80-5.40) m/uL Hgb (11.4-16.0) gm/dL Hct (34.0-46.0) % MCV (80.0-100.0) fL MCH (25.0-35.0) pg MCHC (31.0-37.0) g/dL RDW (11.5-15.5) % Plt Count (150-450) k/uL Neutrophils % % Lymphocytes % % Monocytes % % Eosinophils % % Basophils % % Neutrophils # (1.3-7.7) k/uL Lymphocytes # (1.0-4.8) k/uL Monocytes # (0-1.0) k/uL Eosinophils # (0-0.7) k/uL Basophils # (0-0.2) k/uL Hypochromasia Anisocytosis Microcytosis VBG pH 7.41 (7.31-7.41) VBG pCO2 35 L (37-51) mmHg VBG HCO3 22 L (24-28) mmol/L Sodium (137-145) mmol/L Potassium (3.5-5.1) mmol/L Chloride (98-107) mmol/L Carbon Dioxide (22-30) mmol/L Anion Gap mmol/L BUN (7-17) mg/dL Creatinine (0.52-1.04) mg/dL Est GFR (CKD-EPI)AfAm (>60 ml/min/1.73 sqM) Est GFR (CKD-EPI)NonAf (>60 ml/min/1.73 sqM) Glucose (74-99) mg/dL Calcium (8.4-10.2) mg/dL Troponin I <0.012 (0.000-0.034) ng/mL NT-Pro-B Natriuret Pep pg/mL Urine Color Yellow Urine Appearance Clear (Clear) Urine pH 6.5 (5.0-8.0) Ur Specific [place] 1.012 (1.001-1.035) Urine Protein Trace H (Negative) Urine Glucose (UA) Negative (Negative) Urine Ketones Negative (Negative) Urine Blood Negative (Negative) Urine Nitrite Negative (Negative) Urine Bilirubin Negative (Negative) Urine Urobilinogen <2.0 (<2.0) mg/dL Ur Leukocyte Esterase Negative (Negative) Disposition Clinical Impression: UTI (urinary tract infection), Abdominal pain, Altered mental status Disposition: ADMITTED IP TO THIS HOSP Condition: Good Referrals: None,Stated [Primary Care Provider] - 1-2 days Decision to Admit Reason: Admit from EC - Out of Hospital Transfer - Req. Specs Out of Hospital Transfer - Requested Specifics: Telemetry Unit
[2019-03-28 17:17] LABS: Anion Gap 9 mmol/L; Blood Urea Nitrogen 19 mg/dL (7-17); Calcium 9.8 mg/dL (8.4-10.2); Carbon Dioxide 22 mmol/L (22-30); Chloride 107 mmol/L (98-107); Glucose 99 mg/dL (74-99); Potassium 4.2 mmol/L (3.5-5.1); Sodium 138 mmol/L (137-145)
[2019-03-28 17:18] LABS: Anisocytosis Slight; Basophils % (A) 0 %; Eosinophils # (A) 0.1 k/uL (0-0.7); Eosinophils % (A) 0 %; HCT 38.3 % (34.0-46.0); HGB 11.3 gm/dL (11.4-16.0); Hypochromasia Marked; Lymphocytes # (A) 1.3 k/uL (1.0-4.8); Lymphocytes % (A) 10 %; MCH 19.6 pg (25.0-35.0); MCHC 29.3 g/dL (31.0-37.0); MCV 66.8 fL (80.0-100.0); Mean Platelet Volume 7.2; Microcytosis Marked; Monocytes # (A) 0.9 k/uL (0-1.0); Monocytes % (A) 7 %; Neutrophils # (A) 10.3 k/uL (1.3-7.7); Neutrophils % (A) 80 %; Platelet Count 378 k/uL (150-450); RBC 5.74 m/uL (3.80-5.40); RDW 18.9 % (11.5-15.5); WBC 12.8 k/uL (3.8-10.6)
[2019-03-28 18:18] LABS: Appearance,Urine Clear (Clear); Bilirubin,Urine Negative (Negative); Blood,Urine Negative (Negative); Color,Urine Yellow; Glucose,Urine (UA) Negative (Negative); Ketones,Urine Negative (Negative); Leukocyte Esterase,Urine Negative (Negative); Nitrite,Urine Negative (Negative); PH, Urine 6.5 (5.0-8.0); Protein,Urine Trace (Negative); Specific Gravity,Urine 1.012 (1.001-1.035); Urobilinogen,Urine <2.0 mg/dL (<2.0)
[2019-03-28 18:32] LABS: VBG PH 7.41 (7.31-7.41)
--- NOTE | 2019-03-28 19:22 | CT ---
EXAMINATION TYPE: CT brain yeison love DATE OF EXAM: 03/28/2019 COMPARISON: CT brain 03/22/2019 HISTORY: Chest pain, AMS Neck pain. Headache. CT DLP: 1502.2 mGycm Automated exposure control for dose reduction was used. TECHNIQUE: CT scan of the head and cervical spine are performed without contrast. FINDINGS: There is cerebral cortical atrophy. There is no mass effect nor midline shift. There is n o sign of intracranial hemorrhage. There is hypodensity in the periventricular white matter. The calv arium is intact. Cervical vertebra have normal alignment. There is mild narrowing of cervical disc spaces. Facet joint s appear intact. The skull base is intact. There is no evidence for fracture. There is minor cervical facet arthropathy. I see no focal bony destructive process. IMPRESSION: Cerebral atrophy and chronic small vessel ischemia. 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 No change compared to last exam. Minor degenerative changes in the cervical spine. No fracture.
--- NOTE | 2019-03-28 19:24 | XR ---
EXAMINATION TYPE: XR chest 2V DATE OF EXAM: 03/28/2019 COMPARISON: 03/22/2019 HISTORY: Sternal chest pain TECHNIQUE: Frontal and lateral views of the chest are obtained. FINDINGS: There is no heart failure nor confluent pneumonic infiltrate. Costophrenic angles are rafaela r. There are chest leads. Bony thorax is intact. Thoracic aorta is atheromatous. There is possible hi atal hernia. IMPRESSION: No active cardiopulmonary disease. Atheromatous aorta. No change compared to old exam.
[2019-03-28] MEDS ORDERED: NALOXONE 0.4 MG/ML 1 ML VIAL IV PRN (20:15)
--- NOTE | 2019-03-28 20:58 | CT ---
EXAMINATION TYPE: CT abdomen pelvis w con DATE OF EXAM: 03/28/2019 COMPARISON: None HISTORY: Abdomen/chest pain.AMS CT DLP: 1314.7 mGycm Automated exposure control for dose reduction was used. TECHNIQUE: Helical acquisition of images was performed from the lung bases through the pelvis. CONTRAST: Performed without Oral Contrast and with IV Contrast, patient injected with 100 mL of Isovue 300. FINDINGS: There is slight coarsening of the lung markings at the lung bases. There is moderate-sized hiatal her magi. Heart size is normal. There is no pericardial effusion. There is no pleural effusion. Liver spleen pancreas and stomach appear normal. Bile ducts are not dilated. There is no adrenal mass . There are bilateral renal cortical cysts up to 3 cm.. Kidneys show satisfactory contrast opacificat ion. There is no hydronephrosis. There is no retroperitoneal adenopathy. Ureters are not dilated. There are numerous diverticula in the sigmoid colon. Bladder distends smoothly. There is tiny air nehemias ble in the urinary bladder probably from catheterization. There is no inguinal hernia. There is left hip prosthesis. There is no free fluid in the pelvis. There is no sign of a pelvic mass. There is no mesenteric edema. There is no evidence of a bowel obstruction. Appendix is not definitely seen. There is no sign of thickened appendix. There is no evidence of free air or fluid. Bony structures are intact. I see no bony destructive process. There is 20% anterior wedging of T12 v ertebra that appears old. IMPRESSION: MINIMAL FIBROTIC CHANGES AT THE LUNG BASES. HIATAL HERNIA. NO ACUTE ABNORMALITY WITHIN THE ABDOMEN AN D PELVIS. MODERATE SIGMOID DIVERTICULOSIS WITHOUT DIVERTICULITIS.
--- NOTE | 2019-03-28 21:56 | P.HPIM ---
History of Present Illness H&P Date: 03/28/19 Patient is an 79-year-old female with a PMH of hypertension, and DJD with a recent admission for sepsis secondary to UTI with altered mental status likely secondary to aforementioned UTI, discharged on 03/25/2019 presents to the ED for episode of chest pain earlier today. The patient reports that she has never had pain like this before, was substernal, occurred at around 3 PM, resolved after presentation to the ED, described as a throbbing sensation, with no associated symptoms. The patient was lethargic during the history taking, and it was thereby supplemented by her son Ed at the bedside. The patient denied shortness of breath, nausea, vomiting, diaphoresis, palpitations, or lower extremity pain. She reports that she occasionally has gas, though she has never had pain similar to this before. As per the son at the bedside, the patient continues to be confused and lethargic at home, and has not recovered fully since her previous admission to the hospital. The patient also denied dysuria, abdominal pain, or hematuria. She underwent an excessive evaluation in the ED, with initia l vital signs 150/65 BP, pulse 79, afebrile at 98.8, and saturating 90% on 2 L nasal cannula. Laboratory evaluation revealed a WBC count 12.8, hemoglobin 11.3, troponin less than 0.012, and urinalysis negative for infection. CT head and cervical spine revealed cerebral atrophy along with chronic small vessel ischemic disease. CT abdomen and pelvis with contrast revealed diverticulosis without diverticulitis, and no other acute abnormalities. The patient was subsequently admitted to the medicine service for altered mental status and chest pain. Review of Systems Pertinent positives and negatives as discussed in HPI, a complete review of systems was performed and all other systems are negative. Past Medical History Additional Past Medical History / Comment(s): polio as child History of Any Multi-Drug Resistant Organisms: None Reported Past Surgical History: Hysterectomy, Joint Replacement Past Anesthesia/Blood Transfusion Reactions: No Reported Reaction Past Psychological History: No Psychological Hx Reported Smoking Status: Former smoker Past Alcohol Use History: None Reported Past Drug Use History: None Reported Medications and Allergies Home Medications Medication Instructions Recorded Confirmed Type Cefuroxime Axetil [Ceftin] 500 mg PO BID 3 Days #6 tab 03/24/19 03/28/19 Rx Folic Acid 1 mg PO DAILY@1200 #30 tab 03/24/19 03/28/19 Rx Multivitamins, Thera [Multivitamin 1 each PO DAILY@1200 #30 tab 03/24/19 03/28/19 Rx (formulary)] Pantoprazole [Protonix] 40 mg PO AC-GEORGINAKFST #30 tablet. 03/24/19 03/28/19 Rx amLODIPine [Norvasc] 10 mg PO DAILY #30 tab 03/24/19 03/28/19 Rx LORazepam [Ativan] 0.5 mg PO TID PRN 3 Days #9 tab 03/25/19 03/28/19 Rx Allergies Allergy/AdvReac Type Severity Reaction Status Date / Time No Known Allergies Allergy Verified 03/28/19 17:30 Physical Exam Vitals: Vital Signs Temp Pulse Resp BP Pulse Ox 03/28/19 21:23 67 16 153/54 98 03/28/19 19:26 77 17 144/70 97 03/28/19 18:00 98.2 F 78 18 164/70 100 03/28/19 16:35 98.8 F 79 18 150/65 98 Intake and Output 03/28/19 03/28/19 03/28/19 06:59 14:59 22:59 Other: Weight 82.055 kg General: non toxic, no distress, appears at stated age, overweight Derm: no unusual rashes/lesions no unusual ecchymoses, warm, dry Head: atraumatic, normocephalic, symmetric Eyes: EOMI, no lid lag, anicteric sclera, pupils equal round reactive to light ENT: Nose and ears atraumatic, no thrush, no pharyngeal erythema Neck: No thyromegaly, no cervical lymphadenopathy, trachea midline, supple Mouth: no lip lesion, mucus membranes moist Cardiovascular: S1S2 reg, no murmur, positive posterior tibial pulse bilateral, no edema, capillary refill less than 2 seconds Lungs: CTA bilateral, no rhonchi, no rales , no accessory muscle use Abdominal: soft, nontender to palpation, no suprapubic tenderness, no guarding, no appreciable organomegaly, normal bowel sounds Ext: no gross muscle atrophy, muscle strength 5 out of 5 in all 4 extremities g rossly, no contractures, Neuro: CN II-XI grossly intact, light touch intact all 4 extremities, finger to nose within normal limits, Psych: Lethargic, answering questions appropriately, oriented to person and place, not oriented to time Results CBC & Chem 7: 03/28/19 16:43 03/28/19 16:43 Labs: Abnormal Lab Results - Last 24 Hours (Table) 03/28/19 03/28/19 03/28/19 Range/Units 16:43 16:43 17:55 WBC 12.8 H (3.8-10.6) k/uL RBC 5.74 H (3.80-5.40) m/uL Hgb 11.3 L (11.4-16.0) gm/dL MCV 66.8 L (80.0-100.0) fL MCH 19.6 L (25.0-35.0) pg MCHC 29.3 L (31.0-37.0) g/dL RDW 18.9 H (11.5-15.5) % Neutrophils # 10.3 H (1.3-7.7) k/uL VBG pCO2 35 L (37-51) mmHg VBG HCO3 22 L (24-28) mmol/L BUN 19 H (7-17) mg/dL Urine Protein (Negative) 03/28/19 Range/Units 18:10 WBC (3.8-10.6) k/uL RBC (3.80-5.40) m/uL Hgb (11.4-16.0) gm/dL MCV (80.0-100.0) fL MCH (25.0-35.0) pg MCHC (31.0-37.0) g/dL RDW (11.5-15.5) % Neutrophils # (1.3-7.7) k/uL VBG pCO2 (37-51) mmHg VBG HCO3 (24-28) mmol/L BUN (7-17) mg/dL Urine Protein Trace H (Negative) Assessment and Plan Plan: Chest pain, rule out ACS -Cardiac monitoring -Cardiology consult -Trend troponin Altered mental status, possibly secondary to urinary tract infection, putnam- sensitive E. Coli -Continue with ceftriaxone -Monitor mental status DVT prophylaxis -IPCDs The patient is admitted with an anticipated less than 2 midnight stay for evaluation of chest pain and AMS. CODE STATUS:Full Code Discussed with: Patient Anticipated discharge date: 03/29/[address]: Home A total of 40 minutes was spent on the care of this complex patient more than 50% of the time was spent in counseling and care coordination.
[2019-03-28 23:41] VITALS: BMI 27.5
[2019-03-29] MEDS: PANTOPRAZOLE 40 MG TABLET PO SCH (07:56)
[2019-03-29] MEDS: amLODIPine 10 MG TAB PO SCH (07:56)
[2019-03-29] MEDS: FOLIC ACID 1 MG TAB PO SCH (12:14)
[2019-03-29] MEDS: MULTIVITAMINS, THERA 1 EACH TAB PO SCH (12:14)
--- NOTE | 2019-03-29 13:41 | P.CRDCN ---
History of Present Illness Consult date: 03/29/19 Requesting physician: Karen Martinez Reason for Consult (text): chest pain Chief complaint: chest pain History of present illness: This is a pleasantly confused 79-year-old female patient with a history of hypertension, DJD, recent sepsis secondary to UTI with altered mental status. Was recently discharged on 03/25/2019 and presented again with complaints of chest discomfort. In reviewing the chart at looks like patient complained of some substernal chest discomfort that she describes as a throbbing sensation with no associated symptoms but in speaking with her she verbalized the pain as left-sided discomfort associated with palpitations and shortness of breath. She also had some nausea and vomiting according to her. She feels movement, coughing and deep breathing all make the pain worse. She is unsure how long the pain lasted. EKG on admission showed sinus rhythm without acute ST-T wave abnormalities. Chest x-ray showed no active cardiopulmonary disease. 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 Computed tomography scan of the abdomen and pelvis with contrast showed minimal fibrotic changes at the lung bases, hiatal hernia, no acute abnormality within the abdomen and pelvis, moderate sigmoid diverticulosis without diverticulitis. Laboratory values showed a white blood cell count of 12,800, hemoglobin 11.3, BUN 19, creatinine 0.69, NT proBNP of 1030 and troponins negative 3. Urinalysis showed trace protein otherwise normal. Her pressure has been elevated mostly in the 150s systolic. Upon examination, patient is resting comfortably in bed. She is drinking coffee and has no complaints of discomfort at this time. Past Medical History Additional Past Medical History / Comment(s): polio as child History of Any Multi-Drug Resistant Organisms: None Reported Past Surgical History: Hysterectomy, Joint Replacement Past Anesthesia/Blood Transfusion Reactions: No Reported Reaction Past Psychological History: No Psychological Hx Reported Smoking Status: Former smoker Past Alcohol Use History: None Reported Past Drug Use History: None Reported Medications and Allergies Home Medications Medication Instructions Recorded Confirmed Type Cefuroxime Axetil [Ceftin] 500 mg PO BID 3 Days #6 tab 03/24/19 03/28/19 Rx RX: Folic Acid 1 mg PO DAILY@1200 #30 tab 03/24/19 03/28/19 Rx RX: Multivitamins, Thera 1 each PO DAILY@1200 #30 tab 03/24/19 03/28/19 Rx [Multivitamin (formulary)] RX: Pantoprazole [Protonix] 40 mg PO NILAM-IKE #30 tablet. 03/24/19 03/28/19 Rx RX: amLODIPine [Norvasc] 10 mg PO DAILY #30 tab 03/24/19 03/28/19 Rx LORazepam [Ativan] 0.5 mg PO TID PRN 3 Days #9 tab 03/25/19 03/28/19 Rx Allergies Allergy/AdvReac Type Severity Reaction Status Date / Time No Known Allergies Allergy Verified 03/28/19 17:30 Physical Exam Vitals: Vital Signs Temp Pulse Pulse Resp BP BP Pulse Ox 03/29/19 05:34 98.0 F 66 16 139/63 98 03/28/19 23:00 98.2 F 67 16 156/70 100 03/28/19 22:19 97.5 F L 64 16 154/82 96 03/28/19 21:23 67 16 153/54 98 03/28/19 19:26 77 17 144/70 97 03/28/19 18:00 98.2 F 78 18 164/70 100 03/28/19 16:35 98.8 F 79 18 150/65 98 Intake and Output 03/28/19 03/29/19 03/29/19 22:59 06:59 14:59 Other: Voiding Method Bedside Commode # Voids 1 # Bowel Movements 1 Weight 82.055 kg PHYSICAL EXAMINATION: HEENT: Head is atraumatic, normocephalic. Pupils equal, round. Neck is supple. There is no elevated jugular venous pressure. HEART EXAMINATION: Heart sounds regular, S1 and S2 with a systolic murmur. CHEST EXAMINATION: Lungs are clear to auscultation and precussion. No chest wall tenderness is noted on palpation or with deep breathing. ABDOMEN: Soft, mild generalized tenderness. Bowel sounds are heard. No organomegaly noted. EXTREMITIES: 2+ peripheral pulses with no evidence of peripheral edema and no calf tenderness noted. NEUROLOGIC patient is awake, alert and oriented to person. . Results 03/28/19 16:43 03/28/19 16:43 Cardiac Enzymes 03/28/19 03/28/19 03/29/19 Range/Units 16:43 22:34 05:23 Troponin I <0.012 <0.012 0.014 (0.000-0.034) ng/mL CBC 03/28/19 Range/Units 16:43 WBC 12.8 H (3.8-10.6) k/uL RBC 5.74 H (3.80-5.40) m/uL Hgb 11.3 L (11.4-16.0) gm/dL Hct 38.3 (34.0-46.0) % Plt Count 378 (150-450) k/uL Comprehensive Metabolic Panel 03/28/19 Range/Units 16:43 Sodium 138 (137-145) mmol/L Potassium 4.2 (3.5-5.1) mmol/L Chloride 107 (98-107) mmol/L Carbon Dioxide 22 (22-30) mmol/L BUN 19 H (7-17) mg/dL Creatinine 0.69 (0.52-1.04) mg/dL Glucose 99 (74-99) mg/dL Calcium 9.8 (8.4-10.2) mg/dL Current Medications Generic Name Dose Route Start Last Admin Trade Name Freq PRN Reason Stop Dose Admin Amlodipine Besylate 10 mg 03/29/19 09:00 03/29/19 07:56 Norvasc PO 10 mg DAILY TERI Administration Folic Acid 1 mg 03/29/19 12:00 03/29/19 12:14 Folic Acid PO 1 mg DAILY@1200 TERI Administration Ceftriaxone Sodium 1 gm/ 50 mls @ 100 mls/hr 03/29/19 09:00 03/29/19 07:56 Sodium Chloride IVPB 100 mls/hr Q24HR TERI Administration Multivitamins 1 each 03/29/19 12:00 03/29/19 12:14 Theragran PO 1 each DAILY@1200 TERI Administration Naloxone HCl 0.2 mg 03/28/19 20:15 Narcan IV Q2M PRN Opioid Reversal Pantoprazole Sodium 40 mg 03/29/19 07:30 03/29/19 07:56 Protonix PO 40 mg AC-BRKFST TERI Administration Intake and Output 03/28/19 03/29/19 03/29/19 22:59 06:59 14:59 Other: Voiding Method Bedside Commode # Voids 1 # Bowel Movements 1 Weight 82.055 kg 03/28/19 16:43 03/28/19 16:43 EKG Interpretations (text) Sinus rhythm Assessment and Plan Assessment: #1 symptoms of chest pain, atypical #2 recent sepsis with UTI #3 hypertension #4 altered mental status Plan: From windows system admin perspective, the pain is atypical for angina. We will review 2-D echo with Doppler to assess LV systolic function and size. We will add lisinopril for better blood pressure control. Further recommendations to follow. [employer] note has been reviewed, I agree with a documented findings and plan of care. Patient was seen and examined.
--- NOTE | 2019-03-29 16:15 | ECHOF ---
Referral Reason:chest pain MEASUREMENTS -------- HEIGHT: 172.7 cm WEIGHT: 81.6 kg BP: 139/63 RVIDd: 2.9 cm (< 3.3) IVSd: 1.2 cm (0.6 - 1.1) LVIDd: 3.7 cm (3.9 - 5.3) LVPWd: 1.3 cm (0.6 - 1.1) IVSs: 1.8 cm LVIDs: 2.6 cm LVPWs: 1.8 cm LA Diam: 3.8 cm (2.7 - 3.8) LAESV Index (A-L): 33.10 ml/m Ao Diam: 3.2 cm (2.0 - 3.7) AV Cusp: 1.9 cm (1.5 - 2.6) EPSS: 1.0 cm MV E Brodie: 1.05 m/s MV DecT: 416 ms MV A Brodie: 1.67 m/s MV E/A Ratio: 0.63 AV maxP.50 mmHg AV meanP.62 mmHg AR PHT: 668 ms RAP: 5.00 mmHg RVSP: 36.11 mmHg MV EF SLOPE: 40.24 mm/s (70 - 150) MV EXCURSION: 1.01 cm (> 18.000) FINDINGS -------- Sinus rhythm. This was a technically adequate study. The left ventricular size is normal. There is mild concentric left ventricular hypertrophy. Overa ll left ventricular systolic function is normal with, an EF between 55 - 60 %. The right ventricle is normal in size. LA is midly dilated 29-33ml/m2. The right atrium is normal in size. There is mild aortic valve sclerosis. There is mild aortic regurgitation. There is mild aortic st enosis present. Peak/mean gradient across the Aortic Valve is 23.50mmHg / 11.62mmHg. The mitral valve leaflets are mildly thickened. Moderate mitral annular calcification present. Mi ld mitral regurgitation is present. The peak and mean MV gradients are 16.61mmHg 4.54mmHg as measu red by doppler. Mild mitral stenosis. Mild tricuspid regurgitation present. There is mild pulmonary hypertension. The right ventricular systolic pressure, as measured by Doppler, is 36.11mmHg. The pulmonic valve was not well visualized. The aortic root size is normal. Normal inferior vena cava with normal inspiratory collapse consistent with estimated right atrial pre ssure of 5 mmHg. There is no pericardial effusion. CONCLUSIONS -------- 1. Sinus rhythm. 2. This was a technically adequate study. 3. The left ventricular size is normal. 4. There is mild concentric left ventricular hypertrophy. 5. Overall left ventricular systolic function is normal with, an EF between 55 - 60 %. 6. LA is midly dilated 29-33ml/m2. 7. There is mild aortic valve sclerosis. 8. There is mild aortic regurgitation. 9. There is mild aortic stenosis present. 10. Peak/mean gradient across the Aortic Valve is 23.50mmHg / 11.62mmHg. 11. The mitral valve leaflets are mildly thickened. 12. Moderate mitral annular calcification present. 13. Mild mitral regurgitation is present. 14. The peak and mean MV gradients are 16.61mmHg 4.54mmHg as measured by doppler. 15. Mild mitral stenosis. 16. Mild tricuspid regurgitation present. 17. There is mild pulmonary hypertension. 18. The pulmonic valve was not well visualized. 19. The aortic root size is normal. 20. Normal inferior vena cava with normal inspiratory collapse consistent with estimated right atrial pressure of 5 mmHg. 21. There is no pericardial effusion. [employer] ARCHITECT: JAMES Toure
[2019-03-29] MEDS ORDERED: ACETAMINOPHEN TAB 325 MG TAB PO PRN (16:20)
--- NOTE | 2019-03-29 16:23 | P.PN ---
Subjective Progress Note Date: 03/29/19 Principal diagnosis: Chest pain Son is at bedside. Patient was seen and examined. No acute events overnight. Patient reports complete resolution of her chest pain. She denies any chest pain, shortness breath or palpitations at this time. Son reports that his mother seems to have had a panic attack when giving her pills. She was discharged on an antibiotic that was large in size and had to be broken down into halves. 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 Son also reports that mother's mentation is got better, at baseline since admission. Objective - Vital Signs Vital signs: Vital Signs Temp 98.3 F 03/29/19 14:11 Pulse 94 03/29/19 14:11 Resp 16 03/29/19 14:11 BP 116/67 03/29/19 14:11 Pulse Ox 97 03/29/19 14:11 Intake & Output 03/28/19 03/29/19 03/29/19 18:59 06:59 18:59 Intake Total 50 Balance 50 Weight 82.055 kg Intake: Intake, IV Titration 50 Amount cefTRIAXone 1 gm In 50 Sodium Chloride 0.9% 50 ml @ 100 mls/hr IVPB Q24HR [facility] Rx#:[id number] Other: Voiding Method Bedside Commode # Voids 1 # Bowel Movements 1 - Exam General: [non toxic], [no distress], [appears at stated age] Derm: [warm], [dry] Head: [atraumatic], [normocephalic], [symmetric] Eyes: [EOMI], [no lid lag], [anicteric sclera] Mouth: [no lip lesion], [mucus membranes moist] Cardiovascular: [S1S2 reg], [no murmur], [positive posterior tibial pulse bilateral], Lungs: [CTA bilateral], [no rhonchi, no rales] , [no accessory muscle use] Abdominal: [soft], [ nontender to palpation], [no guarding], [no appreciable organomegaly] Ext: [no gross muscle atrophy], [no edema], [no contractures] Neuro: [no focal neuro deficits], [poor vision bilaterally] Psych: [Alert], [oriented], [appropriate affect] - Labs CBC & Chem 7: 03/28/19 16:43 03/28/19 16:43 Labs: Abnormal Lab Results - Last 24 Hours (Table) 03/28/19 03/28/19 03/28/19 Range/Units 16:43 16:43 17:55 WBC 12.8 H (3.8-10.6) k/uL RBC 5.74 H (3.80-5.40) m/uL Hgb 11.3 L (11.4-16.0) gm/dL MCV 66.8 L (80.0-100.0) fL MCH 19.6 L (25.0-35.0) pg MCHC 29.3 L (31.0-37.0) g/dL RDW 18.9 H (11.5-15.5) % Neutrophils # 10.3 H (1.3-7.7) k/uL VBG pCO2 35 L (37-51) mmHg VBG HCO3 22 L (24-28) mmol/L BUN 19 H (7-17) mg/dL Urine Protein (Negative) 03/28/19 Range/Units 18:10 WBC (3.8-10.6) k/uL RBC (3.80-5.40) m/uL Hgb (11.4-16.0) gm/dL MCV (80.0-100.0) fL MCH (25.0-35.0) pg MCHC (31.0-37.0) g/dL RDW (11.5-15.5) % Neutrophils # (1.3-7.7) k/uL VBG pCO2 (37-51) mmHg VBG HCO3 (24-28) mmol/L BUN (7-17) mg/dL Urine Protein Trace H (Negative) Microbiology - Last 24 Hours (Table) 03/28/19 18:10 Urine Culture - Preliminary Urine,Clean Catch Assessment and Plan Assessment: Assessment and Plan Chest pain Altered mental status possibly secondary to UTI, resolved UTI Elevated BUN Hypertension Troponin less than 0.0122, 0.014 with EKG showing normal sinus rhythm. Cardiology consulted, recommends echocardiogram. Echocardiogram shows EF 55-60% with mild LVH. Acute coronary syndrome ruled out. Plan: As her chest pain could've been caused by anxiety, will start Xanax as needed. Telemetry monitoring. Pain management with Tylenol. Follow cardiology recommendations. Likely secondary to UTI. Resolved. Plan: Fall precautions. Mild leukocytosis of 12.8 but no fever. Urinalysis is negative for leukocyte esterase or nitrites. Urine culture previous admission shows E. coli pansensitive. Plan: Continue Rocephin IV. Repeat CBC tomorrow. BUN 19. Likely secondary to dehydration. Plan: Encourage hydration by mouth. BP 116/67. Plan: Continue lisinopril and amlodipine. Monitor vitals, adjust medications as necessary. Acute coronary syndrome has been ruled out. Patient is on Rocephin IV, urine culture pending. Plans on DC tomorrow if patient shows improvement. Discussed with son and patient at bedside.
[2019-03-29] MEDS: LISINOPRIL 5 MG TAB PO SCH (18:28)
[2019-03-30] MEDS: PANTOPRAZOLE 40 MG TABLET PO SCH (08:25)
[2019-03-30] MEDS: LISINOPRIL 5 MG TAB PO SCH (08:25)
[2019-03-30] MEDS: amLODIPine 10 MG TAB PO SCH (08:25)
[2019-03-30] MEDS: FOLIC ACID 1 MG TAB PO SCH (08:26)
[2019-03-30] MEDS: MULTIVITAMINS, THERA 1 EACH TAB PO SCH (08:26)
--- NOTE | 2019-03-30 11:23 | P.PN ---
Subjective Progress Note Date: 03/30/19 This is a pleasantly confused 79-year-old female patient with a history of hypertension, DJD, recent sepsis secondary to UTI with altered mental status. Was recently discharged on 03/25/2019 and presented again with complaints of chest discomfort. In reviewing the chart at looks like patient complained of some substernal chest discomfort that she describes as a throbbing sensation with no associated symptoms but in speaking with her she verbalized the pain as left-sided discomfort associated with palpitations and shortness of breath. She also had some nausea and vomiting according to her. She feels movement, coughing and deep breathing all make the pain worse. She is unsure how long the pain lasted. EKG on admission showed sinus rhythm without acute ST-T wave abnormalities. Chest x-ray showed no active cardiopulmonary disease. 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 Computed tomography scan of the abdomen and pelvis with contrast showed minimal fibrotic changes at the lung bases, hiatal hernia, no acute abnormality within the abdomen and pelvis, moderate sigmoid diverticulosis without diverticulitis. Laboratory values showed a white blood cell count of 12,800, hemoglobin 11.3, BUN 19, creatinine 0.69, NT proBNP of 1030 and troponins negative 3. Urinalysis showed trace protein otherwise normal. Her pressure had been elevated mostly in the 150s systolic. LIsinopril was added to her medical regimen. 03/30/19 - echocardiogram from yesterday was reviewed and shows a normal LV systolic function with ejection fraction between 55-60% withsegmental wall motion abnormalities, mild AR, mild AF, mild MR and mild MS and mild pulmonary hypertension. Upon examination, patient remains confused but denies further complaints of chest discomfort at this time. Blood pressure is better controlled. Objective - Vital Signs Vital signs: Vital Signs Temp 98.1 F 03/30/19 05:20 Pulse 74 03/30/19 05:20 Resp 20 03/30/19 05:20 BP 142/66 03/30/19 05:20 Pulse Ox 92 L 03/30/19 05:20 Intake & Output 03/29/19 03/30/19 03/30/19 18:59 06:59 18:59 Intake Total 50 830 Balance 50 830 Intake: Intake, IV Titration 50 Amount cefTRIAXone 1 gm In 50 Sodium Chloride 0.9% 50 ml @ 100 mls/hr IVPB Q24HR [facility] Rx#:[id number] Oral 830 Other: Voiding Method Bedside Commode # Voids 2 # Bowel Movements 1 - Exam PHYSICAL EXAMINATION: HEENT: Head is atraumatic, normocephalic. Pupils equal, round. Neck is supple. There is no elevated jugular venous pressure. HEART EXAMINATION: Heart sounds regular, S1 and S2 with a systolic murmur. CHEST EXAMINATION: Lungs are clear to auscultation and precussion. No chest wall tenderness is noted on palpation or with deep breathing. ABDOMEN: Soft, nontender. Bowel sounds are heard. No organomegaly noted. EXTREMITIES: 2+ peripheral pulses with no evidence of peripheral edema and no calf tenderness noted. NEUROLOGIC patient is awake, alert and oriented to person. - Labs CBC & Chem 7: 03/28/19 16:43 03/28/19 16:43 Labs: Microbiology - Last 24 Hours (Table) 03/28/19 18:10 Urine Culture - Preliminary Urine,Clean Catch Gram Neg Bacilli Assessment and Plan Assessment: #1 symptoms of chest pain, atypical #2 recent sepsis with UTI #3 hypertension #4 altered mental status Plan: From silo tender perspective, the pain is atypical for angina. No further cardiac workup at this time. From our standpoint, patient is stable for discharge home. [employer] note has been reviewed, I agree with a documented findings and plan of care. Patient was seen and examined.
[2019-03-30] MEDS: ALPRAZolam 0.5 MG TAB PO PRN ×2 (13:18→20:11)
--- NOTE | 2019-03-30 13:51 | P.PN ---
Subjective Progress Note Date: 03/30/19 Principal diagnosis: Delirium Patient was seen this morning. No acute events overnight. Increased delirium as per RN and son overnight. Patient this morning claims that she's had an , requesting to speak to Dr. Rader and refuses to speak or be examined by me. Son states that patient has never been delirious prior to her urinary tract infection that was treated during her previous hospitalization. Objective - Vital Signs Vital signs: Vital Signs Temp 98.1 F 03/30/19 05:20 Pulse 74 03/30/19 05:20 Resp 20 03/30/19 05:20 BP 142/66 03/30/19 05:20 Pulse Ox 92 L 03/30/19 05:20 Intake & Output 03/29/19 03/30/19 03/30/19 18:59 06:59 18:59 Intake Total 50 830 Balance 50 830 Intake: Intake, IV Titration 50 Amount cefTRIAXone 1 gm In 50 Sodium Chloride 0.9% 50 ml @ 100 mls/hr IVPB Q24HR [facility] Rx#:[id number] Oral 830 Other: Voiding Method Bedside Commode # Voids 2 # Bowel Movements 1 - Exam Patient appears delirious. She is refusing any physical examination. - Labs CBC & Chem 7: 03/28/19 16:43 03/28/19 16:43 Labs: Microbiology - Last 24 Hours (Table) 03/28/19 18:10 Urine Culture - Preliminary Urine,Clean Catch Gram Neg Bacilli Assessment and Plan Assessment: Assessment and Plan Delirium Chest pain UTI Elevated BUN Hypertension Possibly due to UTI but worsening since yesterday. CT head negative for acute process. Plan: Frequent redirection. Attempt to get window side bed. Xanax as needed for anxiety. Use Haldol as a last ditch effort. Follow TSH, RPR. Follow neurology consult. Fall precautions. Troponin less than 0.0122, 0.014 with EKG showing normal sinus rhythm. Cardiology consulted, recommends echocardiogram. Echocardiogram shows EF 55-60% with mild LVH. Acute coronary syndrome ruled out. Plan: As her chest pain could've been caused by anxiety, will start Xanax as needed. Telemetry monitoring. Pain management with Tylenol. Follow cardiology recommendations. Mild leukocytosis of 12.8 but no fever. Urinalysis is negative for leukocyte esterase or nitrites. Urine culture previous admission shows E. coli pansensitive. Plan: Continue Rocephin IV. Repeat CBC tomorrow. BUN 19. Likely secondary to dehydration. Plan: Encourage hydration by mouth. BP 142/66. Plan: Continue lisinopril and amlodipine. Monitor vitals, adjust medications as necessary. Acute coronary syndrome has been ruled out. Patient is on Rocephin IV, urine culture pending. Patient showing worsening delirium, neurology consulted.
--- NOTE | 2019-03-30 17:50 | P.CNNES ---
History of Present Illness Consult date: 03/30/19 Requesting physician: Derek Monique Reason for Consult: Altered mental status History of Present Illness: Patient is a 79-year-old female, with no previous history of cognitive dysfunction, was brought to the hospital on 03/22/2019 for 4 days history of intermittent delusions. Patient told her son that there is a brand-new car in the driveway although there was none. She also told him that they hit the [employer], and asked to call the bank and he called and there was nothing. Patient was brought to the hospital where her blood pressure was noted to be significantly elevated and was diagnosed with UTI. Patient was treated and then released on 03/25/2019. Patient apparently was doing well for 3 days, but then on 03/28/2019, patient started complaining of chest pain, telling that she may be having a heart attack therefore was brought to the hospital. Patient has been evaluated by cardiology. Patient continues to be confused and disoriented which prompted this neurology consultation. Patient at present has no fever, no chills or sweating. There is no slurred speech, facial droop, numbness tingling, focal weakness, nausea vomiting. 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 Patient's EKG showed normal sinus rhythm. Computed tomography scan of head showed cerebral atrophy and chronic small vessel ischemia. Old periventricular white matter lacunar infarcts. Cervical spine showed minor degenerative changes. 2-D echo showed normal sinus rhythm, EF 55-60%. There is mild aortic valve sclerosis. Mild aortic regurgitation. There is mild mitral stenosis. Blood tests shows WBC 12.8 hemoglobin 11.3, platelets 378. MCV is decreased 66.8. Electrolytes are normal, renal functions normal. Patient has no history of hypertension, diabetes, no alcohol use. She smoked 1 pack per day for 30 years, quit about 28-30 years ago. Patient does not have any memory issues prior to these admissions. She would sometimes misplace her keys and remote, but is not unusual for any person. Review of Systems As above in detail. Denies headache. 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 She has corneal opacification on the left. Denies slurred speech facial droop. Past Medical History Additional Past Medical History / Comment(s): polio as child History of Any Multi-Drug Resistant Organisms: None Reported Past Surgical History: Hysterectomy, Joint Replacement Past Anesthesia/Blood Transfusion Reactions: No Reported Reaction Past Psychological History: No Psychological Hx Reported Smoking Status: Former smoker Past Alcohol Use History: None Reported Past Drug Use History: None Reported Medications and Allergies Home Medications Medication Instructions Recorded Confirmed Type Cefuroxime Axetil [Ceftin] 500 mg PO BID 3 Days #6 tab 03/24/19 03/28/19 Rx Folic Acid 1 mg PO DAILY@1200 #30 tab 03/24/19 03/28/19 Rx Multivitamins, Thera [Multivitamin 1 each PO DAILY@1200 #30 tab 03/24/19 03/28/19 Rx (formulary)] Pantoprazole [Protonix] 40 mg PO AC-BRKFST #30 tablet. 03/24/19 03/28/19 Rx amLODIPine [Norvasc] 10 mg PO DAILY #30 tab 03/24/19 03/28/19 Rx LORazepam [Ativan] 0.5 mg PO TID PRN 3 Days #9 tab 03/25/19 03/28/19 Rx Allergies Allergy/AdvReac Type Severity Reaction Status Date / Time No Known Allergies Allergy Verified 03/28/19 17:30 Physical Examination - Vital Signs Vital Signs: Vital Signs Temp Pulse Resp BP Pulse Ox 03/30/19 05:20 98.1 F 74 20 142/66 92 L 03/29/19 20:53 98.7 F 74 16 128/60 95 03/29/19 20:28 98 Intake and Output 03/30/19 03/30/19 03/30/19 06:59 14:59 22:59 Intake Total 590 50 540 Balance 590 50 540 Intake: Intake, IV Titration 50 Amount cefTRIAXone 1 gm In 50 Sodium Chloride 0.9% 50 ml @ 100 mls/hr IVPB Q24HR [facility] Rx#:[id number] Oral 590 540 Other: # Voids 2 2 On examination patient is an elderly female, in no distress. Patient was sleeping, but I woke her up, had slow mentation, and did become slightly more perky later on. Patient knows her age, date of , but states it is March [birth year] and the year is 2006. Could not tell name of the current president. States she lives in [place], but not the [facility]. Patient thinks that she is currently is in her home (not stated was the hospital). Patient has significant difficulty recalling her address. Her speech is low volume but no aphasia or dysarthria. Patient has bilateral positive palmomental reflex, positive visuospatial apraxia. She has left corneal opacification. She has decreased visual acuity on the right. Face is symmetric and tongue protrudes the midline. Palatal elevation normal. On muscle strength testing, there is no pronator drift and the strength is normal in arms and legs distally and proximally. Reflexes symmetric and plantars downgoing. No ataxia for [id number], tone and bulk of muscles normal. Sensations normal. Results - Laboratory Findings CBC and BMP: 03/28/19 16:43 03/28/19 16:43 Abnormal Lab Findings: Abnormal Labs 03/28/19 03/28/19 03/28/19 16:43 16:43 17:55 WBC 12.8 H RBC 5.74 H Hgb 11.3 L MCV 66.8 L MCH 19.6 L MCHC 29.3 L RDW 18.9 H Neutrophils # 10.3 H VBG pCO2 35 L VBG HCO3 22 L BUN 19 H Urine Protein 03/28/19 18:10 WBC RBC Hgb MCV MCH MCHC RDW Neutrophils # VBG pCO2 VBG HCO3 BUN Urine Protein Trace H Assessment and Plan Assessment: * Altered mental status, probably delirium. Patient probably also has significant underlying cognitive impairment versus early dementia. * Status post UTI. * X tobacco user Plan: Patient is showing signs of cognitive impairment. We will empirically start her on Aricept 5 mg daily. After 30 days, the dose can be increased to 10 mg and continue. Possible side effects were informed. Patient should follow-up with a local neurologist as outpatient. We will also check B12, folate. Awaiting TSH, RPR which has been ordered previously. We will check carotid Doppler to rule out carotid stenosis. Discussed with patient's son in detail, who agreed with the management.
[2019-03-30] MEDS ORDERED: DONEPEZIL 5 MG TAB PO SCH (21:00)
[2019-03-30 21:09] VITALS: RESP 16
[2019-03-31 05:13] VITALS: BP 165/74; PULSE 90; TEMP 98
--- NOTE | 2019-03-31 08:43 | US ---
EXAMINATION TYPE: US carotid duplex BILAT DATE OF EXAM: 03/31/2019 COMPARISON: NONE CLINICAL HISTORY: Altered mental status. EXAM MEASUREMENTS: RIGHT: Peak Systolic Velocity (PSV) cm/sec ----- Right CCA: 61.3 ----- Right ICA: 89.2 ----- Right ECA: 109.8 ICA/CCA ratio: 1.5 RIGHT: End Diastole cm/sec ----- Right CCA: 5.9 ----- Right ICA: 14.7 ----- Right ECA: 0.0 LEFT: Peak Systolic Velocity (PSV) cm/sec ----- Left CCA: 68.9 ----- Left ICA: 89.8 ----- Left ECA: 120.5 ICA/CCA ratio: 1.3 LEFT: End Diastole cm/sec ----- Left CCA: 9.6 ----- Left ICA: 16.5 ----- Left ECA: 0.0 VERTEBRALS (direction of flow): Right Vertebral: Antegrade Left Vertebral: Antegrade Rhythm: Normal Bilateral intimal thickening, plaque bilateral bulb, no elevated velocities, no significant stenosis. Atheromatous plaquing without significant flow-limiting stenosis. This appears greatest at the right distal carotid bulb without elevated velocities or significant turbulence. A large plaque is within t he left carotid bulb some posterior shadowing. IMPRESSION: 1. Atheromatous plaquing without significant flow-limiting stenosis based on velocity measurements. Criteria for Assigning % of Stenosis / Diameter reduction (Estimation based on the indirect measurements of the internal carotid artery velocities (ICA PSV). 1. Normal (no stenosis)=ICA PSV < 125 cm/s: ratio < 2.0: ICA EDV<40 cm/s. 2. Less than 50% stenosis=ICA PSV < 125 cm/s: ratio < 2.0: ICA EDV<40 cm/s. 3. 50 to 69% stenosis=ICA PSV of 125 to 230 cm/s: ration 2.0 ? 4.0: ICA EDV 40-100 cm/s. 4. Greater than 70% stenosis to near occlusion= ICA PSV > 230 cm/s: ratio > 4.0: ICA EDV > 100 cm/s. 5. Near occlusion= ICA PSV velocities may be low or undetectable: variable ratio and ICA EDV. 6. Total occlusion=unable to detect flow.
[2019-03-31] MEDS: amLODIPine 10 MG TAB PO SCH (09:16)
[2019-03-31] MEDS: PANTOPRAZOLE 40 MG TABLET PO SCH (09:16)
[2019-03-31] MEDS: LISINOPRIL 5 MG TAB PO SCH (09:16)
[2019-03-31] MEDS: ALPRAZolam 0.5 MG TAB PO PRN (09:27)
[2019-03-31 11:29] LABS: Folate, Serum >24.0 ng/mL
--- NOTE | 2019-03-31 11:34 | P.DS ---
Providers Date of admission: 03/30/19 16:11 Expected date of discharge: 03/31/19 Attending physician: Karen Martinez MD Consults: 03/29/19 01:01 Consult Physician Urgent Consulting Provider: Mahsa Mendieta Consult Reason/Comments: Chest pain Do you want consulting provider notified?: Yes 03/30/19 13:48 Consult Physician Stat Consulting Provider: Jenna Fuentes Consult Reason/Comments: Delirium, UTI but worsening Do you want consulting provider notified?: Yes Primary care physician: Stated None Hospital Course: Patient is an 79-year-old female with a PMH of hypertension, and DJD with a recent admission for sepsis secondary to UTI with altered mental status likely secondary to aforementioned UTI, discharged on 03/25/2019 presents to the ED for episode of chest pain earlier today. The patient reports that she has never had pain like this before, was substernal, occurred at around 3 PM, resolved after presentation to the ED, described as a throbbing sensation, with no associated symptoms. The patient was lethargic during the history taking, and it was thereby supplemented by her son Ed at the bedside. The patient denied shortness of breath, nausea, vomiting, diaphoresis, palpitations, or lower extremity pain. She reports that she occasionally has gas, though she has never had pain similar to this before. As per the son at the bedside, the patient continues to be confused and lethargic at home, and has not recovered fully since her previous admission to the hospital. The patient also denied dysuria, abdominal pain, or hematuria. She underwent an excessive evaluation in the ED, with initial vital signs 150/65 BP, pulse 79, afebrile at 98.8, and saturating 90% on 2 L nasal cannula. Laboratory evaluation revealed a WBC count 12.8, hemoglobin 11.3, troponin less than 0.012, and urinalysis negative for infection. CT head and cervical spine revealed cerebral atrophy along with chronic small vessel ischemic disease. CT abdomen and pelvis with contrast revealed diverticulosis without diverticulitis, and no other acute abnormalities. The patient was subsequently admitted to the medicine service for altered mental status and chest pain. With regard to her chest pain, plan was to rule out ACS. Troponin was less than 0.0122, 0.014 with EKG showing normal sinus rhythm, ACS was ruled out. Cardiology was consulted and recommended echocardiogram. Echocardiogram showed EF 55-60% with mild LVH. Her altered mental status was thought to be secondary to UTI. CT head was negative for acute process. Patient had a mild leukocytosis of 12.8 but was afebrile. Urinalysis was negative for leukocyte esterase or nitrite. Patient was started on Rocephin IV and urine culture was obtained. Urine culture was positive for pseudomonas aeruginosa sensitive to levofloxacin. Patient was noted to be delirious during her hospitalization and neurology was consulted. Neurology recommended starting Aricept. B12, TSH and RPR was pending at the time of discharge. Patient was seen and examined. No acute events overnight. Son reports significant improvement in her mentation since yesterday. States that Xanax helped with her anxiety. Patient denies any chest pain, shortness of breath or palpitations. No nausea or vomiting. No fever or chills. General: [non toxic], [no distress], [appears at stated age] Derm: [warm], [dry] Head: [atraumatic], [normocephalic], [symmetric] Eyes: [EOMI], [no lid lag], [anicteric sclera] Mouth: [no lip lesion], [mucus membranes moist] Cardiovascular: [S1S2 reg], [no murmur], [positive posterior tibial pulse bilateral], Lungs: [CTA bilateral], [no rhonchi, no rales] , [no accessory muscle use] Abdominal: [soft], [ nontender to palpation], [no guarding], [no appreciable organomegaly] Ext: [no gross muscle atrophy], [no edema], [no contractures] Neuro: [no focal neuro deficits], [poor vision bilaterally] Psych: [Alert], [oriented], [appropriate affect] Assessment and Plan Delirium Chest pain UTI Elevated BUN Hypertension Possibly due to UTI but worsening since yesterday. CT head negative for acute process. Neurology consulted, recommends Aricept an outpatient follow-up. Plan: Frequent redirection. Attempt to get window side bed. Xanax as needed for anxiety. Use Haldol as a last ditch effort. Follow TSH, RPR, B12. Follow neurology consult. Fall precautions. Troponin less than 0.0122, 0.014 with EKG showing normal sinus rhythm. Cardiology consulted, recommends echocardiogram. Echocardiogram shows EF 55-60% with mild LVH. Acute coronary syndrome ruled out. Plan: As her chest pain could've been caused by anxiety, will start Xanax as needed. Telemetry monitoring. Pain management with Tylenol. Follow cardiology recommendations. Mild leukocytosis of 12.8 but no fever. Urinalysis is negative for leukocyte esterase or nitrites. Urine culture previous admission shows E. coli pansensitive. Plan: Urine culture shows pseudomonas aeruginosa. DC on levofloxacin by mouth. BUN 19. Likely secondary to dehydration. Plan: Encourage hydration by mouth. BP 165/74. Plan: Continue lisinopril and amlodipine. Monitor vitals, adjust medications as necessary. Acute coronary syndrome has been ruled out. Urine culture sensitive to levofloxacin. Delirious yesterday, improved today, neurology consulted and started on Aricept. Pertinent Studies: Chest x-ray, head and C-spine CT, abdomen and pelvis CT, echocardiogram, carotid Doppler Patient Condition at Discharge: Good Plan - Discharge Summary New Discharge Prescriptions: New Donepezil [Aricept] 5 mg PO HS #30 tab Levofloxacin 750 mg PO DAILY #4 tablet ALPRAZolam [Xanax] 0.5 mg PO RT-Q4H PRN #18 tab PRN Reason: Anxiety Lisinopril [Zestril] 5 mg PO DAILY #30 tab Continue Folic Acid 1 mg PO DAILY@1200 #30 tab Multivitamins, Thera [Multivitamin (formulary)] 1 each PO DAILY@1200 #30 tab amLODIPine [Norvasc] 10 mg PO DAILY #30 tab Pantoprazole [Protonix] 40 mg PO AC-BRKFST #30 tablet. Discontinued Cefuroxime Axetil [Ceftin] 500 mg PO BID 3 Days #6 tab LORazepam [Ativan] 0.5 mg PO TID PRN 3 Days #9 tab PRN Reason: Anxiety Discharge Medication List Folic Acid 1 mg PO DAILY@1200 #30 tab 03/24/19 [Rx] Multivitamins, Thera [Multivitamin (formulary)] 1 each PO DAILY@1200 #30 tab 03/24/19 [Rx] Pantoprazole [Protonix] 40 mg PO AC-BRKFST #30 tablet. 03/24/19 [Rx] amLODIPine [Norvasc] 10 mg PO DAILY #30 tab 03/24/19 [Rx] ALPRAZolam [Xanax] 0.5 mg PO RT-Q4H PRN #18 tab 03/31/19 [Rx] Donepezil [Aricept] 5 mg PO HS #30 tab 03/31/19 [Rx] Levofloxacin 750 mg PO DAILY #4 tablet 03/31/19 [Rx] Lisinopril [Zestril] 5 mg PO DAILY #30 tab 03/31/19 [Rx] Follow up Appointment(s)/Referral(s): None,Stated [Primary Care Provider] - 1-2 days Jenna Fuentes MD [STAFF PHYSICIAN] - 1 Week Activity/Diet/Wound Care/Special Instructions: Diet: Heart healthy Follow-up with PCP within 1-2 days of discharge. Follow-up with neurology within 1 week of discharge Take all medications as advised. Discharge Disposition: HOME SELF-CARE
[2019-03-31] MEDS: MULTIVITAMINS, THERA 1 EACH TAB PO SCH (12:10)
[2019-03-31] MEDS: FOLIC ACID 1 MG TAB PO SCH (12:10)
--- NOTE | 2019-03-31 14:09 | P.PN ---
Subjective Progress Note Date: 03/31/19 patient at present is sleeping. I spoke to patient's son, who states patient is not much confused today otherwise. Patient has been started on Aricept. She is tolerating it well. Objective - Vital Signs Vital signs: Vital Signs Temp 98 F 03/31/19 05:13 Pulse 90 03/31/19 05:13 Resp 16 03/31/19 05:13 BP 165/74 03/31/19 05:13 Pulse Ox 94 L 03/31/19 05:13 Intake & Output 03/30/19 03/31/19 03/31/19 18:59 06:59 18:59 Intake Total 590 240 Balance 590 240 Intake: Intake, IV Titration 50 Amount cefTRIAXone 1 gm In 50 Sodium Chloride 0.9% 50 ml @ 100 mls/hr IVPB Q24HR [facility] Rx#:[id number] Oral 540 240 Other: Voiding Method Bedside Commode Bedside Commode # Voids 2 2 - Exam patient asleep at this time. - Labs CBC & Chem 7: 03/28/19 16:43 03/28/19 16:43 Labs: Microbiology - Last 24 Hours (Table) 03/28/19 18:10 Urine Culture - Final Urine,Clean Catch Pseudomonas aeruginosa Assessment and Plan Assessment: * Altered mental status, probably delirium. Patient probably also has significant underlying cognitive impairment versus early dementia. * Status post UTI. * X tobacco user Plan: Patient is showing signs of cognitive impairment. We will empirically start her on Aricept 5 mg daily. After 30 days, the dose can be increased to 10 mg and continue. Possible side effects were informed. Patient should follow-up with a local neurologist as outpatient. B12 322, folate >24. Awaiting TSH 2.4, RPR negative. Carotid Doppler showed no evidence of carotid stenosis. Discussed with patient's son in detail, who agreed with the management. Clear for discharge from neurology point.
== END 2019-03-31 17:55 | disposition home or self-care (01) | DRG 690 ==
LOC: EC 16:28 → 3NMEDONC 20:17 → OBSVTOIN 03-30 16:11
PROVIDERS: ADMIT Internal Medicine; ATTEND Internal Medicine
DX: N39.0 Urinary tract infection, site not specified (principal); F05 Delirium due to known physiological condition; E86.0 Dehydration; I27.20 Pulmonary hypertension, unspecified; I08.3 Combined rheumatic disorders of mitral, aortic and tricuspid valves; R07.89 Other chest pain; G31.84 Mild cognitive impairment of uncertain or unknown etiology; I10 Essential (primary) hypertension; F41.9 Anxiety disorder, unspecified; K57.30 Diverticulosis of large intestine without perforation or abscess without bleeding; K44.9 Diaphragmatic hernia without obstruction or gangrene; M19.90 Unspecified osteoarthritis, unspecified site; Z79.899 Other long term (current) drug therapy; Z90.710 Acquired absence of both cervix and uterus; Z96.649 Presence of unspecified artificial hip joint; Z87.891 Personal history of nicotine dependence; Z87.440 Personal history of urinary (tract) infections; Z86.12 Personal history of poliomyelitis
CPT/HCPCS: 36415; 70450; 71046; 72125; 74177; 80048; 81003; 82607; 82746; 82803; 83880; 84443; 84484; 85025; 86780; 87077; 87086; 87186; 93005; 93306; 93880; 94760; 96361; 96374; 99285